=== PATIENT | male | born 1975 | race Caucasian/White ===

== ENCOUNTER 2017-04-02 09:13 | Emergency (ER) | payer MEDICAID ==
[~2017-04-02] VITALS: Ht 172.7 cm; Wt 770.0 kg
[2017-04-02] MEDS ORDERED: ALBU2SYR PO (09:17)
[2017-04-02] MEDS ORDERED: FAMOTIDINE 20MG/2ML VIAL IV STA (09:28)
[2017-04-02] MEDS ORDERED: ONDANSETRON HCL 4MG/2ML VIAL IV STA (09:28)
[2017-04-02] MEDS ORDERED: SODIUM CHLORIDE 0.9% 1,000 ML IV ONE (09:28)
[2017-04-02 09:41] LABS: HEMATOCRIT. 35.2 % (42.0-52.0); HEMOGLOBIN. 11.7 g/dL (14.0-18.0); MEAN CORPUSCULAR HEMOGLOBIN 26.2 pg (28.0-32.0); MEAN CORPUSCULAR VOLUME 78.5 fL (80.0-94.0); MEAN PLATELET VOLUME 8.3 fl (7.4-10.4); PLATELET 166 x1000/uL (130-400); RED BLOOD CELL COUNT 4.48 mill/uL (4.7-6.1); RED CELL DISTRIBUTION WIDTH 14.8 % (11.6-14.6)
[2017-04-02 09:49] LABS: INR 1.1; PARTIAL THROMBOPLASTIN TIME 24.3 sec (23.4-31.0)
[2017-04-02 09:55] LABS: CARBON DIOXIDE 28 mEq/L (21-32); CHLORIDE 106 mEq/L (98-107)
[2017-04-02 10:27] LABS: PLATELET ESTIMATE NORMAL
[2017-04-02 11:19] LABS: CLARITY URINE CLEAR (CLEAR); COLOR URINE YELLOW (YELLOW); GLUCOSE URINE TRACE (NEGATIVE); KETONES URINE 1+ (NEGATIVE); LEUKOCYTE ESTERASE URINE NEGATIVE (NEGATIVE); NITRITE URINE NEGATIVE (NEGATIVE); OCCULT BLOOD URINE NEGATIVE (NEGATIVE); PH URINE 7.5 (4.5-8.0); PROTEIN URINE TRACE (NEGATIVE); SPECIFIC GRAVITY URINE 1.024 (1.005-1.030); UROBILINOGEN URINE 0.2 E.U./dL (0.2-1.0)
[2017-04-02 11:45] LABS: *AMPHETAMINES SCREEN URINE PRESUMTIVE POSITIVE (NEGATIVE); *BARBITURATES SCREEN URINE NEGATIVE (NEGATIVE); *BENZODIAZEPINES SCREEN URINE NEGATIVE (NEGATIVE); *COCAINE SCREEN URINE NEGATIVE (NEGATIVE); CANNABINOID URINE SCREEN NEGATIVE (NEGATIVE); METHADONE URINE SCREEN NEGATIVE (NEGATIVE); OPIATES URINE SCREEN PRESUMTIVE POSITIVE (NEGATIVE); PHENCYCLIDINE URINE SCREEN NEGATIVE (NEGATIVE)
[2017-04-02] MEDS ORDERED: IOHEXOL-300 100 ML BOTTLE ONE (11:47)
[2017-04-02 12:10] VITALS: BP 146/81
== END 2017-04-02 12:55 | disposition home or self-care (01) ==
LOC: ER 09:16
DX: R10.13 Epigastric pain (principal); R10.32 Left lower quadrant pain; R11.2 Nausea with vomiting, unspecified; F15.129 Other stimulant abuse with intoxication, unspecified; J45.909 Unspecified asthma, uncomplicated; I10 Essential (primary) hypertension
CPT/HCPCS: 36415; 74177; 80053; 80305; 81001; 83690; 85025; 85610; 85730; 96361; 96374; 96375; 99285; J2405; J3490; J7030; Q9967; Z7610

== ENCOUNTER 2017-04-04 22:13 | Emergency (ER) | payer MEDICAID ==
[~2017-04-04 22:13] MED LIST: ALBU2SYR PO
== END 2017-04-05 00:30 | disposition left against medical advice (07) ==
LOC: ER 04-05 00:19
DX: R10.9 Unspecified abdominal pain (principal); Z53.21 Procedure and treatment not carried out due to patient leaving prior to being seen by health care provider

== ENCOUNTER 2017-04-11 22:46 | Emergency (ER) | payer MEDICAID ==
[~2017-04-11] VITALS: Ht 177.8 cm; Wt 79.0 kg
[2017-04-12] MEDS ORDERED: MAGNESIUM HYDROXIDE 400MG/5ML 30ML UDC PO ONE (00:30)
[2017-04-12 00:34] LABS: CLARITY URINE CLEAR (CLEAR); COLOR URINE YELLOW (YELLOW); GLUCOSE URINE NEGATIVE (NEGATIVE); KETONES URINE NEGATIVE (NEGATIVE); LEUKOCYTE ESTERASE URINE NEGATIVE (NEGATIVE); NITRITE URINE NEGATIVE (NEGATIVE); OCCULT BLOOD URINE NEGATIVE (NEGATIVE); PH URINE 6.5 (4.5-8.0); PROTEIN URINE NEGATIVE (NEGATIVE); SPECIFIC GRAVITY URINE 1.019 (1.005-1.030); UROBILINOGEN URINE 0.2 E.U./dL (0.2-1.0)
[2017-04-12 00:52] LABS: BASOPHILS % 0.8 % (0.0-2.0); EOSINOPHILS % 5.7 % (0.0-5.0); HEMATOCRIT. 33.1 % (42.0-52.0); HEMOGLOBIN. 10.7 g/dL (14.0-18.0); LYMPHOCYTES % 27.2 % (20.0-50.0); MEAN CORPUSCULAR HEMOGLOBIN 25.4 pg (28.0-32.0); MEAN CORPUSCULAR VOLUME 78.7 fL (80.0-94.0); MEAN PLATELET VOLUME 8.5 fl (7.4-10.4); MONOCYTES % 9.9 % (2.0-8.0); NEUTROPHILS % 56.4 % (40.0-76.0); PLATELET 183 x1000/uL (130-400); RED BLOOD CELL COUNT 4.21 mill/uL (4.7-6.1)
[2017-04-12 01:09] LABS: CHLORIDE 108 mEq/L (98-107)
[2017-04-12 01:17] LABS: CARBON DIOXIDE 26 mEq/L (21-32)
[2017-04-12 06:45] VITALS: BP 129/71
== END 2017-04-12 06:47 | disposition home or self-care (01) ==
LOC: ER 22:46
DX: K59.00 Constipation, unspecified (principal); D64.9 Anemia, unspecified; I10 Essential (primary) hypertension; J45.909 Unspecified asthma, uncomplicated; Z59.0 Homelessness
CPT/HCPCS: 36415; 80053; 81003; 83690; 85025; 99284

== ENCOUNTER 2017-05-16 22:01 | Emergency (ER) | payer MEDICAID ==
[~2017-05-16] VITALS: Ht 180.3 cm; Wt 79.0 kg
[2017-05-16 23:05] VITALS: BP 140/88
[2017-05-17] MEDS ORDERED: PREDNISONE 20MG TABLET PO STA (01:52)
[2017-05-17] MEDS ORDERED: IPRATROPIUM/ALBUTEROL 0.5-3(2.5)MG/3ML NEB HHN ONE (02:00)
== END 2017-05-17 04:04 | disposition home or self-care (01) ==
LOC: ER 22:01
DX: J18.9 Pneumonia, unspecified organism (principal); J45.909 Unspecified asthma, uncomplicated; I10 Essential (primary) hypertension
CPT/HCPCS: 71045; 94640; 99283; J7512; J7620

== ENCOUNTER 2017-05-23 22:23 | Emergency (ER) | payer MEDICAID ==
[~2017-05-23] VITALS: Ht 180.3 cm; Wt 77.0 kg
[2017-05-24 03:22] VITALS: BP 136/54
== END 2017-05-24 07:47 | disposition left against medical advice (07) ==
LOC: ER 22:23
DX: Z53.21 Procedure and treatment not carried out due to patient leaving prior to being seen by health care provider (principal)

== ENCOUNTER 2017-06-05 21:17 | Emergency (ER) | payer MEDICAID ==
[~2017-06-05] VITALS: Ht 180.3 cm; Wt 80.0 kg
[2017-06-06] MEDS ORDERED: IBUPROFEN 600MG TABLET PO NR (01:15)
[2017-06-06 01:23] VITALS: BP 141/84
== END 2017-06-06 01:50 | disposition home or self-care (01) ==
LOC: ER 22:18
DX: B34.9 Viral infection, unspecified (principal); I10 Essential (primary) hypertension; J45.909 Unspecified asthma, uncomplicated
CPT/HCPCS: 87804; 99284

== ENCOUNTER 2017-12-05 23:29 | Emergency (ER) | payer MEDICAID ==
[~2017-12-05] VITALS: Ht 180.3 cm; Wt 80.0 kg
[~2017-12-05 23:29] MED LIST changes: -ALBU2SYR PO; +ALBU2SYR3 PO
[2017-12-05 23:41] VITALS: BP 134/86
== END 2017-12-06 03:00 | disposition left against medical advice (07) ==
LOC: EDUNIT# 23:29 → ER 23:29
DX: Z53.21 Procedure and treatment not carried out due to patient leaving prior to being seen by health care provider (principal)

== ENCOUNTER 2017-12-12 22:43 | Emergency (ER) | payer MEDICAID ==
[~2017-12-12] VITALS: Ht 175.3 cm; Wt 79.0 kg
[2017-12-12 22:55] VITALS: BP 149/85
== END 2017-12-13 04:59 | disposition left against medical advice (07) ==
LOC: ER 22:43
DX: Z53.21 Procedure and treatment not carried out due to patient leaving prior to being seen by health care provider (principal)

== ENCOUNTER 2017-12-26 22:43 | Emergency (ER) | payer MEDICAID ==
[~2017-12-26] VITALS: Ht 175.3 cm; Wt 79.5 kg
[2017-12-27] MEDS ORDERED: KETOROLAC 30MG/ML VIAL IM ONE (07:00)
[2017-12-27] MEDS ORDERED: ACETAMINOPHEN 500MG TABLET PO ONE (10:30)
[2017-12-27 11:12] VITALS: BP 134/71
== END 2017-12-27 11:18 | disposition home or self-care (01) ==
LOC: ER 22:43
DX: M54.89 Other dorsalgia (principal); J45.909 Unspecified asthma, uncomplicated; W07.XXXA Fall from chair, initial encounter; Y93.89 Activity, other specified; Y92.811 Bus as the place of occurrence of the external cause
CPT/HCPCS: 96372; 99283; J1885; Z7610

== ENCOUNTER 2018-05-16 22:31 | Emergency (ER) | payer MEDICAID ==
[~2018-05-16] VITALS: Ht 175.3 cm; Wt 85.7 kg
[2018-05-17] MEDS ORDERED: IBUPROFEN 600MG TABLET PO ONE (04:15)
[2018-05-17 04:31] VITALS: BP 149/81
== END 2018-05-17 04:50 | disposition home or self-care (01) ==
LOC: ER 22:31
DX: M19.90 Unspecified osteoarthritis, unspecified site (principal); J45.909 Unspecified asthma, uncomplicated; I10 Essential (primary) hypertension
CPT/HCPCS: 99282; 99283

== ENCOUNTER 2018-05-23 00:27 | Emergency (ER) | payer MEDICAID ==
[~2018-05-23] VITALS: Ht 175.3 cm; Wt 79.4 kg
[2018-05-23] MEDS ORDERED: KETOROLAC 30MG/ML VIAL IV STA (06:53)
[2018-05-23 07:16] LABS: CLARITY URINE CLEAR (CLEAR); COLOR URINE YELLOW (YELLOW); KETONES URINE NEGATIVE (NEGATIVE); LEUKOCYTE ESTERASE URINE NEGATIVE (NEGATIVE); NITRITE URINE NEGATIVE (NEGATIVE); OCCULT BLOOD URINE NEGATIVE (NEGATIVE); PH URINE 7.5 (4.5-8.0); PROTEIN URINE NEGATIVE (NEGATIVE); SPECIFIC GRAVITY URINE 1.009 (1.005-1.030); UROBILINOGEN URINE 0.2 E.U./dL (0.2-1.0)
[2018-05-23 09:07] LABS: BASOPHILS % 0.3 % (0.0-2.0); EOSINOPHILS % 1.2 % (0.0-5.0); HEMATOCRIT. 30.4 % (42.0-52.0); HEMOGLOBIN. 10.2 g/dL (14.0-18.0); LYMPHOCYTES % 42.1 % (20.0-50.0); MEAN CORPUSCULAR HEMOGLOBIN 27.1 pg (28.0-32.0); MEAN CORPUSCULAR VOLUME 81.1 fL (80.0-94.0); MEAN PLATELET VOLUME 8.3 fl (7.4-10.4); MONOCYTES % 8.3 % (2.0-8.0); NEUTROPHILS % 48.1 % (40.0-76.0); PLATELET 213 x1000/uL (130-400); RED BLOOD CELL COUNT 3.75 mill/uL (4.7-6.1); RED CELL DISTRIBUTION WIDTH 14.5 % (11.6-14.6)
[2018-05-23 09:12] LABS: CHLORIDE 107 mEq/L (98-107)
[2018-05-23 11:26] VITALS: BP 152/80
== END 2018-05-23 12:00 | disposition home or self-care (01) ==
LOC: ER 06:41
DX: K59.00 Constipation, unspecified (principal); M19.031 Primary osteoarthritis, right wrist; R03.0 Elevated blood-pressure reading, without diagnosis of hypertension
CPT/HCPCS: 36415; 74018; 80053; 81003; 83690; 85025; 96374; 99284; J1885

== ENCOUNTER 2018-06-27 00:15 | Emergency (ER) | payer MEDICAID | END 2018-06-27 01:50 | disposition left against medical advice (07) | LOC: ER 00:15 | DX: Z53.21 Procedure and treatment not carried out due to patient leaving prior to being seen by health care provider (principal) ==

== ENCOUNTER 2018-11-13 23:59 | Emergency (ER) | payer MEDICAID ==
[~2018-11-13] VITALS: Ht 175.3 cm; Wt 87.3 kg
[2018-11-14] MEDS ORDERED: SODIUM CHLORIDE 0.9% 1,000 ML IV ONE (03:17)
[2018-11-14 03:41] LABS: BASOPHILS % 0.3 % (0.0-2.0); EOSINOPHILS % 1.7 % (0.0-5.0); HEMATOCRIT. 35.2 % (42.0-52.0); HEMOGLOBIN. 12.2 g/dL (14.0-18.0); LYMPHOCYTES % 35.5 % (20.0-50.0); MEAN CORPUSCULAR HEMOGLOBIN 29.2 pg (28.0-32.0); MEAN CORPUSCULAR VOLUME 84.1 fL (80.0-94.0); MEAN PLATELET VOLUME 8.1 fl (7.4-10.4); MONOCYTES % 9.3 % (2.0-8.0); NEUTROPHILS % 53.2 % (40.0-76.0); PLATELET 170 x1000/uL (130-400); RED BLOOD CELL COUNT 4.19 mill/uL (4.7-6.1); RED CELL DISTRIBUTION WIDTH 16.3 % (11.6-14.6)
[2018-11-14 03:43] LABS: CLARITY URINE CLEAR (CLEAR); COLOR URINE YELLOW (YELLOW); KETONES URINE NEGATIVE (NEGATIVE); LEUKOCYTE ESTERASE URINE NEGATIVE (NEGATIVE); NITRITE URINE NEGATIVE (NEGATIVE); OCCULT BLOOD URINE NEGATIVE (NEGATIVE); PROTEIN URINE NEGATIVE (NEGATIVE); SPECIFIC GRAVITY URINE 1.004 (1.005-1.030); UROBILINOGEN URINE 0.2 E.U./dL (0.2-1.0)
[2018-11-14 03:44] LABS: CHLORIDE 107 mEq/L (98-107)
[2018-11-14] MEDS ORDERED: POTASSIUM CHLORIDE 20MEQ TABLET SR PO ONE (06:15)
[2018-11-14 07:00] VITALS: BP 144/81
== END 2018-11-14 07:19 | disposition home or self-care (01) ==
LOC: ER 23:59
DX: K59.00 Constipation, unspecified (principal); M54.5 Low back pain; R03.0 Elevated blood-pressure reading, without diagnosis of hypertension
CPT/HCPCS: 36415; 74176; 80053; 81003; 83690; 85025; 99284; J7030; Z7610